=== PATIENT | female | born 1995 | race Caucasian/White ===

== ENCOUNTER 2016-08-13 19:39 | Emergency (ER) | payer MEDICAID ==
[~2016-08-13] VITALS: Ht 170.2 cm; Wt 60.0 kg
[2016-08-13] MEDS ORDERED: LORazepam 2 MG/ML, 1ML ONE (20:08)
[2016-08-13] MEDS ORDERED: SODIUM CHLORIDE 0.9% 1,000ML IVBOLUS ONE (20:30)
[2016-08-13] MEDS ORDERED: SODIUM CHLORIDE FLUSH 10ML SYR IVF ONE (20:30)
[2016-08-13 20:52] LABS: BLOOD UREA NITROGEN 12 mg/dL (7-18)
[2016-08-13 20:56] VITALS: BP 104/45
[2016-08-13] MEDS ORDERED: LORazepam 2 MG/ML, 1ML IVPush ONE (21:00)
[2016-08-13 21:10] LABS: ASPARTATE AMINO TRANSFERASE 22 U/L (15-37)
== END 2016-08-13 23:13 | disposition home or self-care (01) ==
LOC: ED 23:07
DX: F15.10 Other stimulant abuse, uncomplicated (principal); F16.10 Hallucinogen abuse, uncomplicated; Z33.1 Pregnant state, incidental
CPT/HCPCS: 36415; 80053; 84703; 85025; 96361; 96374; 99284; J2060; J7030